=== PATIENT | male | born 1975 | race African-American/Black ===

== ENCOUNTER 2021-08-29 11:22 | Emergency (ER) | payer OTHER ==
[~2021-08-29] VITALS: Ht 182.9 cm; Wt 77.1 kg
--- NOTE | 2021-08-29 11:32 | NUR ---
To ER bed 1, VICKIE IRAHETA "Was Waiting in [place] to check in witnessed tonic-clonic Sz" [id number]. Aaox3, breathing even and non labored, connected to monitor, awaiting md sanders
--- NOTE | 2021-08-29 11:56 | NUR ---
TAKEN TO CT
[2021-08-29] MEDS ORDERED: LORAZEPAM INJ 2 MG/ML VIAL ONE (11:57)
[2021-08-29] MEDS ORDERED: IV NS 0.9% 500 ML BAG IV ONE (12:00)
[2021-08-29] MEDS ORDERED: LORAZEPAM INJ 2 MG/ML VIAL IVP ONE (12:00)
[2021-08-29] MEDS ORDERED: SERT100T12 PO (12:15)
[2021-08-29 12:31] LABS: BASOPHILS % (AUTO) 0.3 % (0.0-2.0); EOSINOPHILS % (AUTO) 0.1 % (0.0-6.0); HEMATOCRIT 37 % (39-51); HEMOGLOBIN 12.3 g/dL (13.5-17.5); LYMPHOCYTES # (AUTO) 2.1 K/uL (0.8-4.8); LYMPHOCYTES % (AUTO) 24.2 % (20.0-44.0); MEAN CORPUSCULAR HGB CONC 34 g/dl (31.0-36.0); MEAN CORPUSCULAR VOLUME 97 fL (80-96); MONOCYTES # (AUTO) 0.7 K/uL (0.1-1.30); MONOCYTES % (AUTO) 8.1 % (2.0-12.0); NEUTROPHILS # (AUTO) 5.9 K/uL (1.8-8.9); NEUTROPHILS % (AUTO) 67.3 % (43.0-81.0); PLATELET COUNT (AUTO) 320 K/uL (150-450); RED BLOOD CELL COUNT(AUTO) 3.79 MIL/uL (4.5-6.0); WHITE BLOOD COUNT (AUTO) 8.7 K/uL (4.3-11.0)
[2021-08-29 12:38] LABS: ALANINE AMINOTRANSFERASE 50 U/L (12-78); ALBUMIN 4.1 g/dL (3.4-5.0); ALCOHOL, BLOOD < 3 mg/dL (0-0); ALKALINE PHOSPHATASE 102 U/L (46-116); ASPARTATE AMINOTRANSFERASE 73 U/L (15-37); BILIRUBIN,DIRECT 0.1 mg/dL (0.0-0.2); BILIRUBIN,TOTAL 0.5 mg/dL (0.2-1.0); CALCIUM, SERUM 9.1 mg/dL (8.5-10.1); CARBON DIOXIDE 20 mmol/L (21-32); CHLORIDE 97 mmol/L (98-107); CREATININE 1.2 mg/dL (0.6-1.3); GLUCOSE 90 mg/dL (74-106); POTASSIUM 3.7 mmol/L (3.5-5.1); SODIUM SERUM 136 mmol/L (136-145); TOTAL PROTEIN, SERUM 8.1 g/dL (6.4-8.2); UREA NITROGEN, BLOOD 20 mg/dL (7-18)
--- NOTE | 2021-08-29 13:28 | NUR ---
[place], INTAKE FROM [facility] CALLED,[facility] SENT TO HIM
[2021-08-29 14:07] VITALS: BP 142/62
--- NOTE | 2021-08-29 14:07 | NUR ---
IV removed. Catheter intact and site benign. Pressure and 4x4 applied to site. No bleeding noted.Patient discharged to home in stable condition. Written and verbal after care instructions given. Patient verbalizes understanding of instruction.
== END 2021-08-29 14:07 | disposition home or self-care (01) ==
LOC: ER 11:31
DX: G40.909 Epilepsy, unspecified, not intractable, without status epilepticus (principal); R45.851 Suicidal ideations; F31.9 Bipolar disorder, unspecified; F41.9 Anxiety disorder, unspecified; F20.9 Schizophrenia, unspecified; Z86.69 Personal history of other diseases of the nervous system and sense organs; Z86.59 Personal history of other mental and behavioral disorders; Z88.6 Allergy status to analgesic agent; Z79.899 Other long term (current) drug therapy
CPT/HCPCS: 36415; 70450; 71045; 80048; 80076; 80320; 85025; 85730; 93005; 96374; 99284; J2060; J7040; G0480